=== PATIENT | female | born 1960 | race Caucasian/White ===

== ENCOUNTER 2017-09-12 11:52 | Day surgery (SDC) | payer MEDICARE, MEDICAID ==
[~2017-09-12] VITALS: Ht 157.5 cm; Wt 65.8 kg
[~2017-09-12 11:52] MED LIST: ADVAIR DISK1 INH; ALBUTEROL SUL0.083 % IN; AMBIEN10 MG PO; ATENOLOL25 MG PO; ATORVASTATI80 MG/TAB PO; CALCITONIN; CIPROFLOXACN500 MG PO; CYMBALTA60 MG OR; DESYREL50 MG/TAB PO; EFFEXOR XR75 MG PO; ELAVIL10 MG OR; ERYTHROCIN250 MG OR; IPRATROPIU0.5 MG/3 M IN; KLONOPIN1 MG OR; LAMICTAL XR200 MG PO; LAMICTAL150 MG OR; LAMOTRIGINE100 MG OR; LEXAPRO20 MG OR; LIDODERM5 % EX; LISINOPRIL20 MG PO; LORTAB 10 OR; LORTAB5 PO; LYRICA100 MG OR; MEDDOSEPAK OR; METFORMIN500 MG PO; MOTRIN800 MG OR; PERCOCET 5/325M1 TAB OR; PREDNISONE10 MG; PRILOSEC20 MG/CAP PO; PROAIR HFA IN; PROMETHAZINE12.5 MG PO; PROZAC40 MG PO; TRAZODONE150 MG OR; ULTRAM ER100 MG OR; ZOCOR20 MG PO; [UNRECOGNIZED DRUG - CODE] OR; [UNRECOGNIZED DRUG - OTHER]
[2017-09-12] MEDS ORDERED: LABETALOL100 MG PO (12:04)
[2017-09-12 17:23] VITALS: BP 123/67
== END 2017-09-12 17:15 | disposition home or self-care (01) ==
LOC: ORM 11:52
PROVIDERS: ATTEND Orthopaedic Surgery
PROC: 0LN80ZZ Release Left Hand Tendon, Open Approach (ICD-10-PCS; principal; 2017-09-12)
DX: M65.312 Trigger thumb, left thumb (principal); J45.909 Unspecified asthma, uncomplicated; E11.9 Type 2 diabetes mellitus without complications; I10 Essential (primary) hypertension

== ENCOUNTER 2018-11-11 08:46 | Emergency (ER) | payer MEDICARE ==
[~2018-11-11] VITALS: Ht 160 cm; Wt 62.7 kg
[~2018-11-11 08:46] MED LIST changes: +LABETALOL100 MG PO
[2018-11-11 09:31] LABS: HEMOGLOBIN 13.4 g/dl (12.0-16.0); IMMATURE GRANULOCYTES 0.5 % (0.0-5.0); MEAN CORPUSCULAR HGB 32.1 pG CALC (26.0-32.0); MEAN CORPUSCULAR HGB CONC 35.6 g/L CALC (32.0-36.0); NEUT# 7.9 thou/uL (2.00-7.15); RED BLOOD COUNT 4.18 mill/uL (4.20-5.60); RED CELL DISTRI WIDTH 12.1 % (11.5-15.5)
[2018-11-11 09:33] LABS: HEMATOCRIT 37.6 % (37.0-47.0)
[2018-11-11] MEDS ORDERED: OMNI-PAC300 MG PO (09:39)
[2018-11-11] MEDS ORDERED: ZPAK PO (09:39)
[2018-11-11] MEDS ORDERED: CHERATUSSIN PO (09:39)
[2018-11-11] MEDS ORDERED: PREDNISONE50 MG PO (09:39)
[2018-11-11 09:59] LABS: ANION GAP 15 (6-22 (CALC)); BUN 11 mg/dL (7-17); BUN/CREATININE RATIO 19 (12-20 (CALC)); CARBON DIOXIDE 19 mmol/l (22-30); CHLORIDE 106 mmol/l (95-108); CREATININE 0.6 mg/dL (0.5-1.0); GFR > 60 ML/MIN (>=60 (CALC)); GFR FOR AFR.AMER. > 60 ML/MIN (>=60 (CALC)); SODIUM 137 mmol/l (137-146)
[2018-11-11 10:04] LABS: POTASSIUM 3.3 mmol/l (3.5-5.1)
[2018-11-11 11:12] VITALS: BP 147/74
== END 2018-11-11 11:12 | disposition home or self-care (01) ==
LOC: ED 08:46
PROVIDERS: Family Medicine
DX: J45.901 Unspecified asthma with (acute) exacerbation (principal); F17.210 Nicotine dependence, cigarettes, uncomplicated; R06.02 Shortness of breath; R50.9 Fever, unspecified; R05 Cough

== ENCOUNTER 2019-03-06 08:05 | Emergency (ER) | payer MEDICARE, MEDICAID ==
[~2019-03-06] VITALS: Ht 160 cm; Wt 61.4 kg
[~2019-03-06 08:05] MED LIST changes: +CHERATUSSIN PO; +OMNI-PAC300 MG PO; +PREDNISONE50 MG PO; +ZPAK PO
[2019-03-06 09:07] LABS: HEMOGLOBIN 14.3 g/dl (12.0-16.0); IMMATURE GRANULOCYTES 0.4 % (0.0-5.0); MEAN CORPUSCULAR HGB 31.2 pG CALC (26.0-32.0); MEAN CORPUSCULAR HGB CONC 32.6 g/L CALC (32.0-36.0); NEUT# 6.32 thou/uL (2.00-7.15); RED BLOOD COUNT 4.59 mill/uL (4.20-5.60); RED CELL DISTRI WIDTH 12.4 % (11.5-15.5)
[2019-03-06 09:14] LABS: HEMATOCRIT 43.9 % (37.0-47.0); MEAN CELL VOLUME 95.6 fL CALC (80.0-100.0)
[2019-03-06 09:19] LABS: ALBUMIN 4.6 g/dL (3.2-5.0); ALKALINE PHOSPHATASE 71 u/l (38-126); ANION GAP 9 (6-22 (CALC)); BILIRUBIN, TOTAL 0.6 mg/dL (0.0-1.4); BUN 15 mg/dL (7-17); BUN/CREATININE RATIO 22 (12-20 (CALC)); CARBON DIOXIDE 24 mmol/l (22-30); CHLORIDE 108 mmol/l (95-108); CREATININE 0.7 mg/dL (0.5-1.0); GFR > 60 ML/MIN (>=60 (CALC)); GFR FOR AFR.AMER. > 60 ML/MIN (>=60 (CALC)); LIPASE 80 u/l (23-300); POTASSIUM 4.3 mmol/l (3.5-5.1); SGOT/AST 21 u/l (14-36); SODIUM 137 mmol/l (137-146); TOTAL PROTEIN 7.4 g/dL (6.3-8.2)
[2019-03-06 10:34] LABS: URINE BILIRUBIN - DIPSTICK NEGATIVE (NEGATIVE); URINE BLOOD DIPSTICK TRACE-LYSED (NEGATIVE); URINE COLOR YELLOW; URINE GLUCOSE - DIPSTICK NEGATIVE (NEGATIVE); URINE KETONE NEGATIVE (NEGATIVE); URINE LEUK ESTERASE NEGATIVE (NEGATIVE); URINE NITRITE - DIPSTICK NEGATIVE (Negative); URINE PROTEIN - DIPSTICK NEGATIVE (NEG-TRACE); URINE SPECIFIC GRAVITY 1.015; URINE UROBILINOGEN - DIPSTICK 0.2 E.U./dL (0.2)
[2019-03-06 13:52] VITALS: BP 134/78
== END 2019-03-06 14:00 | disposition home or self-care (01) ==
LOC: ED 08:05
PROVIDERS: Family Medicine
DX: K52.9 Noninfective gastroenteritis and colitis, unspecified (principal); E11.9 Type 2 diabetes mellitus without complications; I10 Essential (primary) hypertension; F17.210 Nicotine dependence, cigarettes, uncomplicated